=== PATIENT | female | born 1995 ===

== ENCOUNTER 2018-08-12 22:24 | Emergency (ER) | payer OTHER ==
[2018-08-12 22:30] VITALS: BP 146/86; PULSE 136; RESP 26; TEMP 99.6; O2SAT 100
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
== END 2018-08-13 02:20 | disposition home or self-care (01) ==
LOC: H.ER 22:24
DX: S16.1XXA Strain of muscle, fascia and tendon at neck level, initial encounter (principal); S39.012A Strain of muscle, fascia and tendon of lower back, initial encounter; V89.2XXA Person injured in unspecified motor-vehicle accident, traffic, initial encounter
CPT/HCPCS: 70450; 72100; 72125; 81025; 96372; 99284; J1885